=== PATIENT | male | born 1945 | race Caucasian/White ===

== ENCOUNTER → 2023-12-09 11:23 | Outpatient (REF) | payer MEDICARE, SELFPAY | LOC: DHCBS MAIN 11:23 | PROVIDERS: ATTENDING PHYSICIAN Nuclear Medicine Nuclear Cardiology; FAMILY PHYSICIAN Physician Assistant | DX: Z95.2 Presence of prosthetic heart valve (principal) | CPT/HCPCS: 93306 ==

== ENCOUNTER → 2024-01-06 16:45 | Outpatient (REF) | payer MEDICARE, SELFPAY | LOC: RAD 16:45 | PROVIDERS: ATTENDING PHYSICIAN Internal Medicine Rheumatology | DX: M25.50 Pain in unspecified joint (principal) | CPT/HCPCS: 73562; 73565 ==

== ENCOUNTER → 2024-01-27 10:57 | Outpatient (REF) | payer MEDICARE, OTHER, SELFPAY | LOC: HWRAD 10:57 | PROVIDERS: ATTENDING PHYSICIAN Surgery; FAMILY PHYSICIAN Family Medicine | DX: N40.1 Benign prostatic hyperplasia with lower urinary tract symptoms (principal) | CPT/HCPCS: 76770 ==

== ENCOUNTER 2024-09-01 02:38 | Emergency (ER) | payer OTHER, SELFPAY ==
[2024-09-01 02:39] VITALS: BP 137/76
[2024-09-01 02:51] VITALS: BMI 29.7
[2024-09-01 03:00] VITALS: BP 117/67
[2024-09-01 03:12] LABS: % Basophils 0.5 % (0-2); % Eosinophils 2.5 % (0-6); % Immature Granulocytes 0.2 % (0-0.5); % Lymphocytes 20.9 % (20.5-51.1); % Monocytes 9.4 % (1.7-9.3); % Neutrophils 66.5 % (42.2-75.2); Absolute Eosinophils 0.2 10^3/uL (0-0.7); Absolute Lymphocytes 1.4 10^3/uL (1.2-3.4); Absolute Monocytes 0.6 10^3/uL (0.1-0.6); Absolute Neutrophils 4.3 10^3/uL (1.4-6.5); Hematocrit 42.5 % (39.0-52.0); Hemoglobin 13.7 g/dL (13.0-18.0); Mean Corp Hgb Conc. 32.2 g/dL (33.0-37.0); Mean Corpuscular Hgb 28.5 pg (27.0-31.0); Mean Corpuscular Volume 88.5 fL (80.0-94.0); Mean Platelet Volume 11.4 fL (7.4-10.4); Nucleated Red Blood Cells % 0 % (-); Platelet Count 211 10^3/uL (130-400); Red Cell Dist. Width 16.7 % (11.5-14.5); White Blood Cell Count 6.5 10^3/uL (4.8-10.8)
[2024-09-01 03:33] LABS: ALT (SGPT) 17 U/L (0-50); AST (SGOT) 23 U/L (17-59); Albumin 4.3 g/dl (3.5-5.0); Alkaline Phosphatase 90 U/L (38-126); Blood Urea Nitrogen 32 mg/dl (9-20); Calcium 9.6 mg/dl (8.4-10.2); Carbon Dioxide 31 mmol/L (22-30); Chloride 99 mmol/L (98-107); Estimated Creatinine Clearance 40 ml/min; Glucose 119 mg/dl (70-99); Potassium 4.7 mmol/L (3.5-5.1); Sodium 141 mmol/L (135-145); Total Bilirubin 0.9 mg/dl (0.2-1.3); Total Protein 7.6 g/dl (6.3-8.2); eGFR 44.38
--- NOTE | 2024-09-01 03:36 | ED.GENMED ---
History of Present Illness
<MAGGIE Raphael - Last Filed: 09/01/24 06:16>
General
Chief Complaint: Chest Pain
Source: family
Exam Limitations: other (language barrier, daughter translated )
Time Seen by Provider: 09/01/24 03:23
Nursing documentation reviewed up to this point in time: agreed with
History of Present Illness
History of Present Illness:
Patient is a 78yo M w/ PMH of open valve replacement and unspecified arrhythmia who presents to the ED w/ chest pain x5hrs. Reports substernal pain that feels like stabbing. States it feels like bone is collapsing putting pressure on chest. Unable
to sit up due to pain. Pain worse w/ breathing, rated 5/10 after nitro. Reports L arm pain is gone since nitro. Also admits to palpitations before nitro. Denies SOB, RAMOS, dizziness, and nausea. Denies any recent illness.
Past History
<MAGGIE Raphael - Last Filed: 09/01/24 06:16>
Past History
ED Past Medical History: HTN and Hypercholesterolemia
ED Past Surgical History: Orthopedic
Social History
Tobacco: Non-smoker
Review of Systems
<MAGGIE Raphael - Last Filed: 09/01/24 06:16>
Review of Systems
Constitutional: Denies fever, fatigue or chills
EENT: Denies sore throat or runny nose
Respiratory: Denies cough or trouble breathing
Cardiac: Reports chest pain and palpitations; Denies diaphoresis
ABD/GI: Denies abdominal pain, nausea, vomiting, diarrhea or constipated
: Denies dysuria
Musculoskeletal: Denies joint pain, muscle pain or neck pain
Neurological: Denies dizzy, headache, weakness or numbness
Phy Exam
<MAGGIE Raphael - Last Filed: 09/01/24 06:16>
General Physical Exam
General Presentation: mild distress
General age: appears stated age
General Skin: warm and dry
General Habitus: elderly
General Mental: alert
Cardiovascular Exam
Cardiovascular Exam: no edema, occasionally irregular and sternotomy scar
Pulmonary Exam
Pulmonary Exam: lungs clear and no respiratory distress
Gastrointestinal Exam
Gastrointestinal Exam: normal bowel sounds, non tender, soft and non distended
Neurological Exam
Neurological Exam: alert, oriented x3, no motor deficits, no sensory deficits and speech normal
Musculoskeletal Exam
Musculoskeletal Exam: no edema
Scores
<Ricardo Elizalde DO - Last Filed: 09/01/24 06:29>
Heart Score for Chest Pain Patients
STEMI patient?: No
History: Slightly or Non-Suspicious
ECG: Nonspecific Repolarization
Age: >/= 65 years
Risk Factors: No Risk Factors
Troponin: </= Normal Limit
Heart Score for Chest Pain Patients: 3
Heart Score Risk: 2.5% MACE over next 6 weeks
Course
<ST IjeomaWV - Last Filed: 09/01/24 06:16>
Orders/Labs/Results
Orders:
Orders
09/01/24 02:39
Electrocardiogram (*1) Urgent
Reason for Study: Chest Pain
Cardiac Monitoring- Treatment ONCE
EKG- Treatment ONCE
IV Insert/Care/Rem.- Treatment PRN
O2 Therapy [RESP] Urgent
Titrate/Wean O2 to maintain O2 sat greater than (%): 90
Special Instructions: Maintain sats >/=90%
Pulse Ox/spot Check [RESP] Urgent
Quantity: 1
Special Instructions: ON ROOM AIR
09/01/24 02:49
Complete Blood Count/With Diff Urgent
Comprehensive Metabolic Panel Urgent
Troponin I Urgent
09/01/24 04:10
CR Chest - 2 Views Urgent
Comment:
Reason For Exam: cp
09/01/24 04:18
Acetaminophen [Tylenol] 650 mg PO NOW STA
Morphine Sulfate 4 mg IV NOW STA
Ondansetron Injectable [Zofran] 4 mg IV NOW STA
09/01/24 04:19
CT Chest Angio W/wo Iv Contras Urgent
Comment:
Reason For Exam: cp, concern for dissection
09/01/24 06:11
Troponin I Urgent
Abnormal Lab Results
09/01/24
02:49
MCHC 32.2 L g/dL
(33.0-37.0)
RDW 16.7 H %
(11.5-14.5)
MPV 11.4 H fL
(7.4-10.4)
Monocytes % 9.4 H %
(1.7-9.3)
Carbon Dioxide 31 H mmol/L
(22-30)
BUN 32 H mg/dl
(9-20)
Creatinine 1.6 H mg/dL
(0.7-1.3)
Glucose 119 H mg/dl
(70-99)
09/01/24 02:49
09/01/24 02:49
Vital Signs
Initial and Last Documented VS:
Initial Vital Signs
Pulse Resp BP Pulse Ox
85 18 137/76 96
09/01/24 02:39 09/01/24 02:39 09/01/24 02:39 09/01/24 02:39
Last Documented Vital Signs
Pulse Resp BP Pulse Ox
89 19 137/78 97
09/01/24 04:15 09/01/24 04:15 09/01/24 04:00 09/01/24 04:50
<Ricardo Elizalde, - Last Filed: 09/01/24 06:29>
Orders/Labs/Results
Orders:
Orders
09/01/24 02:39
Electrocardiogram (*1) Urgent
Reason for Study: Chest Pain
Cardiac Monitoring- Treatment ONCE
EKG- Treatment ONCE
IV Insert/Care/Rem.- Treatment PRN
O2 Therapy [RESP] Urgent
Titrate/Wean O2 to maintain O2 sat greater than (%): 90
Special Instructions: Maintain sats >/=90%
Pulse Ox/spot Check [RESP] Urgent
Quantity: 1
Special Instructions: ON ROOM AIR
09/01/24 02:49
Complete Blood Count/With Diff Urgent
Comprehensive Metabolic Panel Urgent
Troponin I Urgent
09/01/24 04:10
CR Chest - 2 Views Urgent
Comment:
Reason For Exam: cp
09/01/24 04:18
Acetaminophen [Tylenol] 650 mg PO NOW STA
Morphine Sulfate 4 mg IV NOW STA
Ondansetron Injectable [Zofran] 4 mg IV NOW STA
09/01/24 04:19
CT Chest Angio W/wo Iv Contras Urgent
Comment:
Reason For Exam: cp, concern for dissection
09/01/24 06:11
Troponin I Urgent
Abnormal Lab Results
09/01/24
02:49
MCHC 32.2 L g/dL
(33.0-37.0)
RDW 16.7 H %
(11.5-14.5)
MPV 11.4 H fL
(7.4-10.4)
Monocytes % 9.4 H %
(1.7-9.3)
Carbon Dioxide 31 H mmol/L
(22-30)
BUN 32 H mg/dl
(9-20)
Creatinine 1.6 H mg/dL
(0.7-1.3)
Glucose 119 H mg/dl
(70-99)
09/01/24 02:49
09/01/24 02:49
Vital Signs
Initial and Last Documented VS:
Initial Vital Signs
Pulse Resp BP Pulse Ox
85 18 137/76 96
09/01/24 02:39 09/01/24 02:39 09/01/24 02:39 09/01/24 02:39
Last Documented Vital Signs
Pulse Resp BP Pulse Ox
89 19 137/78 97
09/01/24 04:15 09/01/24 04:15 09/01/24 04:00 09/01/24 04:50
<MAGGIE Raphael - Last Filed: 09/01/24 06:16>
MDM/Problems Addressed
Differential Diagnosis Includes:
Considering ACS, pericarditis, and surgical wire loosening. Sxs are typical of NV/ACS but lab testing is negative. Will do imaging to access wire placement and look for pericardial effusion.
<MAGGIE Raphael - Last Filed: 09/01/24 06:16>
*Critical Care Note
Total Time (30-74mins, 75-104mins- exclusive of procedures): Not Applicable
<MAGGIE Raphael - Last Filed: 09/01/24 06:16>
Update Note
Update Note:
09/01/2024 05:44 AM - Updated pt and family that initial troponin and CT are negative for acute changes. Explained that we will recheck troponin before discharge. Pt states he is feel somewhat better.
<Ricardo Elizalde DO - Last Filed: 09/01/24 06:29>
Update Note
Update Note:
09/01/2024 05:44 AM - Updated pt and family that initial troponin and CT are negative for acute changes. Explained that we will recheck troponin before discharge. Pt states he is feel somewhat better.
6:30 AM CAT scan noted second troponin pending suspect will be undetectable
ED Attending Note
<MAGGIE Raphael - Last Filed: 09/01/24 06:16>
-
Portions of this chart may have been created with voice recognition software.� Occasional wrong word or��sound alike� substitutions may have occurred due to the inherent limitations of voice recognition software.
<Ricardo Elizalde DO - Last Filed: 09/01/24 06:29>
ED Attending Note
Patient seen and examined by attending physician: Yes
I performed the substantive portion of visit, reviewed & personally made and approve the management plan that is documented in note by myself or FERN.: Yes
ED Attending Note:
Seen with resident examined independently, 78-year-old male status post valve repair while he was dizzy and fall carry for years ago presents acute onset of sharp anterior chest pain over sternum worse with sitting up did receive nitroglycerin with
some relief here is resting comfortably when he sits up he points to his sternum states he has pain, he is on Eliquis and metoprolol, also Farxiga
Discharge Plan
Departure
Patient Disposition: Home (Routine Discharge)
Date of Disposition: 09/01/24
Time of Disposition: 06:26
Patient with high blood pressure during this ER visit?: No
Condition: Good
Covid-19: Not Applicable
Discharge Problem:
Pain of sternum
Instructions: Chest Pain PCP Follow Up
Prescriptions:
New
oxycodone-acetaminophen [Percocet] 5-325 mg tablet
1 tab PO Q6HPRN PRN (Reason: pain) Qty: 10 0RF
No Action
torsemide 20 mg Tablet
20 mg PO DAILY PRN (Reason: swelling)
metoprolol succinate 50 mg Tablet Extended Release 24 Hr
50 mg PO BID
chlorthalidone 50 mg Tablet
50 mg PO DAILY
rosuvastatin 10 mg Tablet
10 mg PO QPM
Eliquis 5 mg Tablet
5 mg PO BID
dapagliflozin propanediol [Farxiga] 10 mg Tablet
10 mg PO QPM
Entresto 24-26 mg Tablet
1 tab PO BID
Referrals:
Ricardo Aquino PA [Family Provider] -
Interventions
Interventions:
*Risk Screen - Suicide Last Done: 09/01/24 02:39
*General Assessment Last Done: 09/01/24 02:39
*Neglect/Abuse Screening Last Done: 09/01/24 02:52
*ED COVID-19 Vaccine History Last Done: 09/01/24 02:51
ED- Cardiac Assessment Last Done: 09/01/24 02:52
Discharge Date and Time
Print Language: BELARUSIAN
[2024-09-01 03:46] LABS: Troponin I < 0.012 ng/ml
[2024-09-01 04:00] VITALS: BP 137/78
[2024-09-01] MEDS: ZOFRAN 4 MG IV (04:43)
[2024-09-01] MEDS: MORPHINE SULFATE 4 MG IV (04:44)
[2024-09-01] MEDS: TYLENOL 650 MG PO (04:44)
[2024-09-01 05:00] VITALS: BP 125/72
[2024-09-01 06:00] VITALS: BP 113/63
[2024-09-01 06:44] LABS: Troponin I < 0.012 ng/ml
== END 2024-09-01 07:02 | disposition home or self-care (01) ==
LOC: EMR 02:38
PROVIDERS: EMERGENCY PHYSICIAN Emergency Medicine; FAMILY PHYSICIAN Physician Assistant
DX: R07.2 Precordial pain (principal); E78.00 Pure hypercholesterolemia, unspecified; I10 Essential (primary) hypertension; Z95.2 Presence of prosthetic heart valve
CPT/HCPCS: 99283; 96374; 96375; 71046; 71275; 80053; 84484; 85025; 93005; Q9967

== ENCOUNTER → 2024-09-28 08:51 | Outpatient (REF) | payer OTHER, SELFPAY ==
[2024-09-28 10:16] LABS: ALT (SGPT) 28 U/L (0-50); AST (SGOT) 29 U/L (17-59); Albumin 4.1 g/dl (3.5-5.0); Alkaline Phosphatase 88 U/L (38-126); Blood Urea Nitrogen 31 mg/dl (9-20); Calcium 9.5 mg/dl (8.4-10.2); Carbon Dioxide 33 mmol/L (22-30); Chloride 103 mmol/L (98-107); Glucose 115 mg/dl (70-99); Potassium 4.6 mmol/L (3.5-5.1); Sodium 143 mmol/L (135-145); Total Bilirubin 0.7 mg/dl (0.2-1.3); Total Protein 7.2 g/dl (6.3-8.2); eGFR 52.09
== END ==
LOC: REG 08:51
PROVIDERS: ATTENDING PHYSICIAN Physician Assistant
DX: N28.9 Disorder of kidney and ureter, unspecified (principal)
CPT/HCPCS: 36415; 80053

== ENCOUNTER → 2024-11-27 09:06 | Outpatient (REF) | payer MEDICARE, OTHER, SELFPAY | LOC: RCS 09:06 | PROVIDERS: ATTENDING PHYSICIAN Nuclear Medicine Nuclear Cardiology; FAMILY PHYSICIAN Physician Assistant | DX: R07.2 Precordial pain (principal) | CPT/HCPCS: 93306 ==

== ENCOUNTER → 2024-12-28 10:21 | Outpatient (REF) | payer MEDICARE, OTHER, SELFPAY | LOC: RAD 10:21 | PROVIDERS: ATTENDING PHYSICIAN Internal Medicine Gastroenterology; FAMILY PHYSICIAN Physician Assistant | DX: R13.10 Dysphagia, unspecified (principal) | CPT/HCPCS: 74221 ==

== ENCOUNTER → 2025-01-03 07:12 | Outpatient (REF) | payer MEDICARE, OTHER, SELFPAY | LOC: HWRCS 07:12 | PROVIDERS: ATTENDING PHYSICIAN Nuclear Medicine Nuclear Cardiology; FAMILY PHYSICIAN Physician Assistant | DX: R07.2 Precordial pain (principal) | CPT/HCPCS: 78452; 93017; A9500; J2785 ==

== ENCOUNTER → 2025-08-16 08:45 | Outpatient (REF) | payer MEDICARE, OTHER, SELFPAY ==
[2025-08-16 09:47] LABS: ALT (SGPT) 36 U/L (0-50); AST (SGOT) 33 U/L (17-59); Albumin 4.6 g/dl (3.5-5.0); Alkaline Phosphatase 73 U/L (38-126); Blood Urea Nitrogen 33 mg/dl (9-20); Calcium 9.6 mg/dl (8.4-10.2); Carbon Dioxide 32 mmol/L (22-30); Chloride 102 mmol/L (98-107); Glucose 115 mg/dl (70-99); HDL Cholesterol 40 mg/dl; LDL Cholesterol, Calculated 115 mg/dl; Potassium 4.1 mmol/L (3.5-5.1); Sodium 142 mmol/L (135-145); Total Protein 7.8 g/dl (6.3-8.2); Very Low Density Lipoprotein 25 mg/dl (0-30); eGFR 51.77
== END ==
LOC: REG 08:45
PROVIDERS: ATTENDING PHYSICIAN Nuclear Medicine Nuclear Cardiology; FAMILY PHYSICIAN Physician Assistant
DX: I10 Essential (primary) hypertension (principal)
CPT/HCPCS: 36415; 80053; 80061

== ENCOUNTER → 2025-09-18 15:43 | Outpatient (REF) | payer MEDICARE, OTHER, SELFPAY | LOC: CLAB 15:43 | PROVIDERS: ATTENDING PHYSICIAN Surgery | DX: L72.3 Sebaceous cyst (principal) | CPT/HCPCS: 88304 ==

== ENCOUNTER 2025-09-25 13:13 | Emergency (ER) | payer MEDICARE, OTHER, SELFPAY ==
[2025-09-25 13:31] VITALS: BP 153/97
--- NOTE | 2025-09-25 15:33 | ED.GENMED ---
History of Present Illness
General
Chief Complaint: Skin Problem
Source: patient
Exam Limitations: none
Time Seen by Provider: 09/25/25 14:18
Nursing documentation reviewed up to this point in time: agreed with
History of Present Illness
History of Present Illness:
79-year-old male past medical history of hypertension hyperlipidemia presenting to the emergency department today with concerns of bleeding from a cyst removed from his back 1 week ago. Initially was doing well bleeding intermittently over the past
day but persisting today despite pressure. Patient is on Eliquis for heart valve replacement. Denies any chest pain lightheadedness shortness of breath.
Past History
Past History
ED Past Medical History: HTN and Hypercholesterolemia
ED Past Surgical History: Orthopedic
Social History
Tobacco: Non-smoker
Review of Systems
Review of Systems
Allergies reviewed?: Yes
All Other Systems: ROS reviewed and negative except as documented in HPI and ROS
Phy Exam
Physical Exam
Physical Exam:
GENERAL: Alert , in no apparent distress
EYE: pupils equal and reactive
NECK: Supple, no significant adenopathy.
ENT: o/p clr, mmm.
CARDIAC: Regular rate and rhythm .
LUNGS: Clear breath sounds bilaterally, no acute respiratory distress, no wheezes/rales/rhonchi
ABDOMEN: Soft, without focal tenderness, no r/g, no cvat
NEUROLOGICAL: Alert and oriented, no focal neuro deficits
SKIN: Bleeding surgical incision to the right upper back, warm and dry, skin intact.
MUSCULOSKELETAL: No edema, well perfused.
PSYCH: Normal and appropriate interaction.
Course
Vital Signs
Initial and Last Documented VS:
Initial Vital Signs
Temp Pulse Resp BP Pulse Ox
97.8 F 70 18 153/97 95
09/25/25 13:31 09/25/25 13:31 09/25/25 13:31 09/25/25 13:31 09/25/25 13:31
Last Documented Vital Signs
Temp Pulse Resp BP Pulse Ox
97.8 F 70 18 153/97 95
09/25/25 13:31 09/25/25 13:31 09/25/25 13:31 09/25/25 13:31 09/25/25 13:31
Procedures
Laceration Closure
Right Superior Back:
Status of Wound: clean
Size of Wound in cm: 1
Description of Wound Edges: sharp
Preparation: cleaned with saline
Anesthesia: 1% Lidocaine with epi
Revision/Debridement: routine- no revision
Wound exploration: explored to base- no FB
Type of Closure: single layer closure and other ([id number] stitch)
Skin Closure Material: other (4-0 Monocryl)
MDM/Problems Addressed
MDM/Problems Addressed:
79-year-old male presenting to the emergency department today with concerns of bleeding from the surgical site from cyst removal from 1 week ago. Bleeding not controlled with pressure. Finger made stitch was placed. Bleeding well-controlled after
observation for 30 minutes. Stable for outpatient follow-up. Case was discussed with patient surgeon who will follow-up with next week.
*Pulse Oximetry
SaO2: 95
Oxygen Mode of Delivery: Room air
Patient hypoxic: no (99)
*Critical Care Note
Total Time (30-74mins, 75-104mins- exclusive of procedures): Not Applicable
ED Attending Note
-
Portions of this chart may have been created with voice recognition software.� Occasional wrong word or��sound alike� substitutions may have occurred due to the inherent limitations of voice recognition software.
Discharge Plan
Departure
Patient Disposition: Home (Routine Discharge)
Date of Disposition: 09/25/25
Time of Disposition: 15:33
Patient with high blood pressure during this ER visit?: No
Condition: Good
Covid-19: Not Applicable
Discharge Problem:
Bleeding from surgical wound
Instructions: Wound Care (DC)
Prescriptions:
No Action
torsemide 20 mg Tablet
20 mg PO DAILY PRN (Reason: swelling)
metoprolol succinate 50 mg Tablet Extended Release 24 Hr
50 mg PO BID
chlorthalidone 50 mg Tablet
50 mg PO DAILY
rosuvastatin 10 mg Tablet
10 mg PO QPM
Eliquis 5 mg Tablet
5 mg PO BID
dapagliflozin propanediol [Farxiga] 10 mg Tablet
10 mg PO QPM
Entresto 24-26 mg Tablet
1 tab PO BID
oxycodone-acetaminophen [Percocet] 5-325 mg tablet
1 tab PO Q6HPRN PRN (Reason: pain) Qty: 10 0RF
Referrals:
Ricardo Aquino PA [Family Provider, Family Practice]
Activity Restrictions/Additional Instructions:
You came to the emergency department today with concerns of bleeding from the surgical site. Here you do [id number] stitch placed to control bleeding. Please follow closely with your surgeon. Return to the emergency department any worsening,
new or concerning symptoms.
Interventions
Interventions:
*Risk Screen - Suicide Last Done: 09/25/25 13:33
ED-Skin Assessment Last Done: 09/25/25 15:17
Discharge Date and Time
Print Language: NEPALI
== END 2025-09-25 16:03 | disposition home or self-care (01) ==
LOC: EMR 13:13
PROVIDERS: EMERGENCY PHYSICIAN Emergency Medicine; FAMILY PHYSICIAN Physician Assistant
DX: L76.21 Postprocedural hemorrhage of skin and subcutaneous tissue following a dermatologic procedure (principal); Y83.8 Other surgical procedures as the cause of abnormal reaction of the patient, or of later complication, without mention of misadventure at the time of the procedure; E78.00 Pure hypercholesterolemia, unspecified; I10 Essential (primary) hypertension; Z95.2 Presence of prosthetic heart valve; Z79.01 Long term (current) use of anticoagulants
CPT/HCPCS: 12001; 99282